=== PATIENT | female | born 1985 | race Caucasian/White ===

== ENCOUNTER 2019-07-15 12:29 | Inpatient (IN) | payer BC ==
[~2019-07-15] VITALS: Ht 165.1 cm; Wt 95.5 kg
[2019-07-19] VITALS (20 sets, daily range): BP systolic 84–123; BP diastolic 40–80; PULSE 59–90; TEMP 97.6–98.2
[2019-07-19] MEDS ORDERED: LEVOXYL0.075 MG PO (06:23)
[2019-07-19] MEDS ORDERED: CYTOMEL 5MC5 MCG/TAB PO (06:23)
[2019-07-19] MEDS ORDERED: PRENATAL (06:24)
[2019-07-19 06:34] LABS: BASO % 0.4 % (0.0-2.0); EOS # 0.2 (0.0-0.7); EOS % 1.7 % (0-4.0); GRAN # 5.3 (1.4-6.5); GRAN % 55.8 % (42.2-75.2); HEMATOCRIT 39.8 % (37.0-47.0); HEMOGLOBIN 13.2 g/dl (12.5-16.0); LYMPH % 32.1 % (20.0-51.0); MEAN CELL VOLUME 92 fl (80.0-100.0); MEAN CORPUSCULAR HEMOGLOBIN 31 pg (27.0-31.0); MEAN CORPUSCULAR HGB CONC 33 g/dl (33.0-37.0); MEAN PLATELET VOLUME 11.4 fl (7.4-10.4); MONO # 0.9 (0.1-0.6); MONO % 9.7 % (1.7-9.3); PLATELET COUNT 211 K/mm3 (130-400); RED BLOOD COUNT 4.31 M/mm3 (4.10-5.30); REDCELL DISTRIBUTION WIDTH-CV 13.7 % (11.5-14.5)
--- NOTE | 2019-07-19 16:35 | NUR ---
Patient up and sitting on edge of bed. Patient ambulates to bathroom and rico catheter removed/patient tolerates well. Pericare done, new gown, underwear, pad on. Patient ambulates room at this time and has no needs. Plan of care discussed.
[2019-07-20 03:00] VITALS: BP 105/54; PULSE 68; TEMP 97.9
[2019-07-20 06:58] LABS: HEMATOCRIT 38.8 % (37.0-47.0); HEMOGLOBIN 12.4 g/dl (12.5-16.0)
[2019-07-20 07:10] VITALS: BP 105/54; PULSE 68; TEMP 97.8
[2019-07-20] MEDS ORDERED: PERCOCET 325 MG1 TA2 PO (13:32)
[2019-07-20] MEDS ORDERED: IBU600 MG PO (13:32)
[2019-07-20 15:24] VITALS: BP 101/52; PULSE 70; TEMP 98.1
[2019-07-20 22:00] VITALS: BP 96/54; PULSE 69; TEMP 98.3
[2019-07-21 08:55] VITALS: BP 100/53; PULSE 71; TEMP 97.9
== END 2019-07-21 13:50 | disposition home or self-care (01) | DRG 788 ==
LOC: OB 07-19 06:01 → LDR 07-19 12:27 → OB 07-19 12:31
PROVIDERS: ADMIT Obstetrics & Gynecology
PROC: 10D00Z1 Extraction of Products of Conception, Low, Open Approach (ICD-10-PCS; principal; 2019-07-19)
DX: O34.211 Maternal care for low transverse scar from previous cesarean delivery (principal); Z3A.39 39 weeks gestation of pregnancy; Z37.0 Single live birth; O99.284 Endocrine, nutritional and metabolic diseases complicating childbirth; O99.344 Other mental disorders complicating childbirth; E03.9 Hypothyroidism, unspecified; F32.9 Major depressive disorder, single episode, unspecified; N80.9 Endometriosis, unspecified; N73.6 Female pelvic peritoneal adhesions (postinfective); O75.89 Other specified complications of labor and delivery
CPT/HCPCS: J0690; J1885; J2175; J2250; J2370; J2405; J3010; J7120

== ENCOUNTER → 2021-10-03 | Outpatient (CLI) | payer BC ==
[~2021-10-03] MED LIST: CYTOMEL 5MC5 MCG/TAB PO; IBU600 MG PO; LEVOXYL0.075 MG PO; PERCOCET 325 MG1 TA2 PO; PRENATAL
== END ==
LOC: DIA.ED 14:12
DX: O24.419 Gestational diabetes mellitus in pregnancy, unspecified control (principal)
CPT/HCPCS: G0108

== ENCOUNTER → 2021-10-14 | Outpatient (CLI) | payer BC | LOC: DIA.ED 09:17 | DX: O24.419 Gestational diabetes mellitus in pregnancy, unspecified control (principal) | CPT/HCPCS: G0108 ==

== ENCOUNTER → 2022-01-06 | Outpatient (CLI) | payer BC | LOC: DIA.ED 09:30 | DX: O24.419 Gestational diabetes mellitus in pregnancy, unspecified control (principal) | CPT/HCPCS: G0108 ==